=== PATIENT | male | born 1990 | race Caucasian/White ===

== ENCOUNTER 2021-07-19 12:02 | Inpatient (IN) | payer BC ==
[2021-07-19] MEDS ORDERED: NALOXONE HCL (KLOXXADO) 8 MG SPRAY NS PRN (12:45)
[2021-07-19] MEDS ORDERED: MAGNESIUM HYDROX 2400MG/30ML ORAL SUSPENSION 30 ML CUP PO PRN (12:45)
[2021-07-19] MEDS ORDERED: MAG HYDROX/AL HYDROX/SIMETH 30 ML UNIT-DOSE CUP PO PRN (12:45)
[2021-07-19] MEDS ORDERED: BISMUTH SUBSALICYLATE 262 MG/15 ML BTL PO PRN (12:45)
[2021-07-19] MEDS ORDERED: methaDONE HCL 10 MG TABLET (FOR DETOX USE ONLY) PO ONE ×2 (12:45→14:00)
[2021-07-19] MEDS ORDERED: ACETAMINOPHEN 325 MG TABLET (FP) PO PRN ×2 (12:45)
[2021-07-19] MEDS ORDERED: cloNIDine HCL 0.1 MG TABLET PO PRN (12:45)
[2021-07-19] MEDS ORDERED: DICYCLOMINE HCL 10 MG CAPSULE PO PRN (12:45)
[2021-07-19] MEDS ORDERED: MAGNESIUM CITRATE 300 ML BOTTLE PO PRN (12:45)
[2021-07-19] MEDS ORDERED: BENZOCAINE/MENTHOL (CHLORASEPTIC ) LOZENGE MM PRN (12:45)
[2021-07-19 13:32] VITALS: BMI 27.0
[2021-07-19] MEDS: PRENATAL VITAMINS W/ FOLIC ACID TABLET (FP) PO SCH (14:08)
[2021-07-19] MEDS: METHOCARBAMOL 500 MG TABLET PO PRN (14:08)
[2021-07-19] MEDS: hydrOXYzine PAMOATE 25 MG CAPSULE (FP) PO SCH ×3 (14:49→22:07)
[2021-07-19] MEDS: NICOTINE 10 MG CARTRIDGE (INHALER) IH PRN (17:36)
[2021-07-19] MEDS: MELATONIN 5 MG TABLETS PO SCH (22:07)
[2021-07-19] MEDS: KETOCONAZOLE 2% CREAM - 60GM TUBE TP SCH (22:07)
[2021-07-19] MEDS: THIAMINE HCL 100 MG TABLET (FP) PO SCH (22:07)
[2021-07-20] MEDS: hydrOXYzine PAMOATE 25 MG CAPSULE (FP) PO SCH ×5 (05:22→22:23)
[2021-07-20] MEDS ORDERED: methaDONE HCL 10 MG TABLET (FOR DETOX USE ONLY) ONE (09:23)
[2021-07-20] MEDS: PRENATAL VITAMINS W/ FOLIC ACID TABLET (FP) PO SCH (10:14)
[2021-07-20] MEDS: NICOTINE 10 MG CARTRIDGE (INHALER) IH PRN ×2 (10:17→17:14)
[2021-07-20] MEDS: KETOCONAZOLE 2% CREAM - 60GM TUBE TP SCH (11:31)
[2021-07-20 12:15] LABS: HEMATOCRIT 41.9 % (35.4-49); HEMOGLOBIN 14.2 GM/dL (11.7-16.9); MCH 28.4 pg (25.7-33.7); MCHC 33.9 g/dl (32.0-35.9); MEAN PLT VOLUME 8.1 fl (7.5-11.1); PLATELET COUNT 243 10^3/uL (134-434); RBC 4.99 M/mm3 (4.00-5.60); RDW 12.9 % (11.9-15.9)
[2021-07-20 12:21] LABS: CALCIUM 8.8 mg/dL (8.5-10.1)
[2021-07-20 12:22] LABS: ALBUMIN 3.5 g/dl (3.4-5.0); BLOOD UREA NITROGEN 14.7 mg/dL (7-18)
[2021-07-20 12:25] LABS: CREATININE 1.1 mg/dL (0.55-1.3)
[2021-07-20 12:27] LABS: BILIRUBIN,TOTAL 0.6 mg/dL (0.2-1); TOT PROT 5.8 g/dl (6.4-8.2)
[2021-07-20] MEDS: diazePAM 5 MG TABLET PO PRN (14:43)
[2021-07-20] MEDS: MELATONIN 5 MG TABLETS PO SCH (22:23)
[2021-07-20] MEDS: THIAMINE HCL 100 MG TABLET (FP) PO SCH (22:23)
[2021-07-21] MEDS: hydrOXYzine PAMOATE 25 MG CAPSULE (FP) PO SCH ×5 (05:19→22:06)
[2021-07-21] MEDS: diazePAM 5 MG TABLET PO PRN ×5 (05:20→22:09)
[2021-07-21] MEDS ORDERED: methaDONE HCL 10 MG TABLET (FOR DETOX USE ONLY) PO ONE (10:00)
[2021-07-21] MEDS: PRENATAL VITAMINS W/ FOLIC ACID TABLET (FP) PO SCH (10:11)
[2021-07-21] MEDS: KETOCONAZOLE 2% CREAM - 60GM TUBE TP SCH (10:12)
[2021-07-21] MEDS: ONDANSETRON *ODT* 4 MG TABLET SL PRN (10:13)
[2021-07-21] MEDS: LOPERAMIDE HCL 2 MG CAPSULE PO PRN (10:13)
[2021-07-21] MEDS: NICOTINE 10 MG CARTRIDGE (INHALER) IH PRN ×2 (14:06→20:33)
[2021-07-21] MEDS: THIAMINE HCL 100 MG TABLET (FP) PO SCH (22:06)
[2021-07-21] MEDS: MELATONIN 5 MG TABLETS PO SCH (22:06)
[2021-07-22] MEDS: hydrOXYzine PAMOATE 25 MG CAPSULE (FP) PO SCH ×5 (05:15→22:13)
[2021-07-22] MEDS: LOPERAMIDE HCL 2 MG CAPSULE PO PRN (05:17)
[2021-07-22] MEDS: ONDANSETRON *ODT* 4 MG TABLET SL PRN (05:17)
[2021-07-22] MEDS: diazePAM 5 MG TABLET PO PRN ×4 (05:18→22:13)
[2021-07-22] MEDS ORDERED: methaDONE HCL 10 MG TABLET (FOR DETOX USE ONLY) ONE (08:31)
[2021-07-22] MEDS: METHOCARBAMOL 500 MG TABLET PO PRN ×2 (10:13→22:14)
[2021-07-22] MEDS: PRENATAL VITAMINS W/ FOLIC ACID TABLET (FP) PO SCH (10:13)
[2021-07-22] MEDS: NICOTINE 10 MG CARTRIDGE (INHALER) IH PRN ×3 (10:14→22:15)
[2021-07-22] MEDS: KETOCONAZOLE 2% CREAM - 60GM TUBE TP SCH (10:14)
[2021-07-22] MEDS: IBUPROFEN 400 MG TABLET (FP) PO PRN (16:38)
[2021-07-22] MEDS: MELATONIN 5 MG TABLETS PO SCH (22:13)
[2021-07-22] MEDS: THIAMINE HCL 100 MG TABLET (FP) PO SCH (22:13)
[2021-07-23] MEDS: hydrOXYzine PAMOATE 25 MG CAPSULE (FP) PO SCH ×5 (06:23→22:13)
[2021-07-23] MEDS ORDERED: methaDONE HCL 10 MG TABLET (FOR DETOX USE ONLY) PO ONE (10:00)
[2021-07-23] MEDS: PRENATAL VITAMINS W/ FOLIC ACID TABLET (FP) PO SCH (10:04)
[2021-07-23] MEDS: diazePAM 5 MG TABLET PO PRN (10:05)
[2021-07-23] MEDS: METHOCARBAMOL 500 MG TABLET PO PRN ×2 (10:05→17:52)
[2021-07-23] MEDS: KETOCONAZOLE 2% CREAM - 60GM TUBE TP SCH (10:05)
[2021-07-23] MEDS: LOPERAMIDE HCL 2 MG CAPSULE PO PRN (10:06)
[2021-07-23] MEDS: NICOTINE 10 MG CARTRIDGE (INHALER) IH PRN ×4 (10:08→22:15)
[2021-07-23] MEDS: IBUPROFEN 400 MG TABLET (FP) PO PRN ×2 (13:15→22:14)
[2021-07-23] MEDS: MELATONIN 5 MG TABLETS PO SCH (22:13)
[2021-07-23] MEDS: THIAMINE HCL 100 MG TABLET (FP) PO SCH (22:13)
[2021-07-24] MEDS: hydrOXYzine PAMOATE 25 MG CAPSULE (FP) PO SCH (06:23)
[2021-07-24] MEDS: NICOTINE 10 MG CARTRIDGE (INHALER) IH PRN (06:53)
[2021-07-24] MEDS: IBUPROFEN 400 MG TABLET (FP) PO PRN (06:54)
[2021-07-24 08:53] VITALS: BP 123/64; PULSE 60; TEMP 96.9
== END 2021-07-24 09:26 | disposition home or self-care (01) | DRG 897 ==
LOC: YASAS 12:02 → Y3N 13:04
PROVIDERS: ADMIT Allergy & Immunology; ATTEND Surgery
PROC: HZ2ZZZZ Detoxification Services for Substance Abuse Treatment (ICD-10-PCS; principal; 2021-07-19)
DX: F11.23 Opioid dependence with withdrawal (principal); F17.210 Nicotine dependence, cigarettes, uncomplicated
CPT/HCPCS: 36415; 80053; 85027; 86780; 93005; 93010; C9803-CS; J0735; Q0162; U0003; U0005